=== PATIENT | female | born 1970 | race African-American/Black ===

== ENCOUNTER → 2016-09-20 | Outpatient (CLI) | payer OTHER ==
[~2016-09-20] MED LIST: ACETAMINOPHEN PO; ADVAIR 100-501 EAC1 IH; ADVAIR 2501 DISK W/D PO; ALBUTEROL MININEB NEB; ALBUTEROL17 GM INH; AMOXICILLIN PO; BUSPAR15 MG PO; CLARITIN10 M2 PO; FLEXERIL10 M1 PO; FLONASE 0.05% N16 G1; HYDROCODON-ACE1 EAC9 PO; K-TAB ER20 MEQ PO; KLONOPIN PO; LINZESS145 MCG PO; LISINOPRIL10 MG PO; MEDROL DOSEPAK4 MG PO; NASONEX17 GM; NEURONTIN PO; PHENTERMINE H37.5 M1 PO; PREDNISONE PO; PREDNISONE50 MG PO; PROTONIX PO; SINGULAIR PO; SYMBICORT; SYMBICORT80 INH; TORADOL10 MG PO; TRIAMTERENE-HCT1 TA8 PO; TYLENOL325 M1; VITAMIN D 22000 UNIT PO; XOPENEX1.25 MG/0. NEB; ZITHROMAX1 G/PKT PO
--- NOTE | ~2016-09-20 | CT113 ---
[facility] A Service of [facility] RADIOLOGY TEXT RESULTS PATIENT: FIDEL LEACH LOCATION: [facility] : 70 UNIT #: [id number] AGE: [address]: Aung Navarro MD SEX: F ORDER DR: [id number] [facility] [address] [place], [place] [address] [id number] O MR#: [id number] Acc #: [id number] NAME: FIDEL LEACH : 1970 SEX: F STUDY DATE/TIME: 09/20/2016 10:34 UNIT: [facility] ROOM: STUDY DESCRIPTION: CT Sinuses Wo Contrast Attending Physician: Aung Navarro M.D. Referring Physician: Aung Navarro M.D. Ordering Physician: Aung Navarro M.D. Primary Care Physician: Juan Alberto Preston Jr., A.P.R.N. MEDICAL IMAGING REPORT This report is preliminary unless electronic signature is present EXAM Sinus CT without contrast 09/20/2016 [address]URE Axial unenhanced sinus CT with multiplanar reformats. TECHNIQUE This CT exam was performed with one or more of the following radiation dose reduction techniques: automatic exposure control, adjustment of mA and/or kV according to patient size, and iterative reconstruction. COMPARISON STUDIES None. CLINICAL HISTORY Chronic sinusitis and nasal polyposes pulposus. Difficulty breathing through nose for 1 year. FINDINGS The frontal sinuses are normally pneumatized but completely opacified. The ethmoid air cells are normally pneumatized but completely opacified. The sphenoid chambers are normally pneumatized but completely opacified. The maxillary sinuses are completely opacified. The left is normally pneumatized but the right is relatively small possibly partially atelectatic. There is subtotal opacification of the right nasal passage and moderate opacification left nasal passage. There is a rightward deviation of the anterior septum. There are no areas of bone erosion or destruction. The [facility] A Service of [facility] RADIOLOGY TEXT RESULTS PATIENT: FIDEL LEACH LOCATION: [facility] : 70 UNIT #: [id number] AGE: [address]: Aung Navarro MD SEX: F ORDER DR: orbital and other soft tissues are unremarkable. IMPRESSION Near total sinus and the nasal passages opacification bilaterally. Findings are certainly consistent with sinonasal pulposus. There is some rightward deviation of the cartilaginous anterior septum but there is no bone erosion or thickening or destruction. The right maxillary sinus is partially atelectatic. Of note in addition, the mediolateral course of the anterior ethmoidal arteries is probably completely surrounded by pneumatized though opacified ethmoid air cells which could place them at risk for endoscopic injury. The right artery is best seen on coronal image 39 and the left on coronal image 41. Dictated by... Duncan Rizo M.D. THIS IS AN ELECTRONICALLY VERIFIED REPORT Duncan Rizo M.D. at 09/24/2016 2:20 PM NAZ/diana TD: 09/21/2016 12:37 JOB #: [id number] MEDICAL IMAGING REPORT Page 1 of 1 COPY
== END | disposition home or self-care (01) ==
LOC: CCAT 09:29
DX: J33.9 Nasal polyp, unspecified (principal); J34.89 Other specified disorders of nose and nasal sinuses; J32.9 Chronic sinusitis, unspecified
CPT/HCPCS: 70486